=== PATIENT | male | born 1970 | race Hispanic/Latino ===

== ENCOUNTER 2019-01-08 17:48 | Emergency (ER) | payer OTHER ==
[~2019-01-08 17:48] MED LIST: Dextrose 5 %-0.45 % NaCl 1000 ml Bag ONE
[2019-01-08 18:10] LABS: #Basophils 0.1 thou/uL (0.0-0.2); #Lymphocytes 1.8 thou/uL (1.20-3.40); #Monocytes 0.5 thou/uL (0.11-0.59); %Basophils 0.8 % (0.0-1.0); %Eosinophils 0.3 % (0.0-10.0); %Lymphocytes 21.5 % (21.0-51.0); %Monocytes 5.6 % (0.0-10.0); %Neutrophils 71.7 % (42.0-75.0); Hemoglobin 15.6 g/dL (14.0-18.0); Mean Corpuscular HGB CONC 33.9 g/dL (32.0-36.0); Mean Corpuscular Hemoglobin 29.8 pg (27.0-31.0); Mean Corpuscular Volume 88.1 fL (78.0-98.0); Mean Platelet Volume 9.2 fL (7.4-10.4); Platelet Count 155 thou/uL (130-400); RBC Distribution Width 11.3 % (11.5-14.5); Red Blood Cell (RBC) Count 5.24 mill/uL (4.70-6.10); White Blood Cell (WBC) Count 8.3 thou/uL (4.8-10.8)
[2019-01-08 18:13] LABS: INR-International Normal Ratio 1.1; PTT 30.8 SEC (22.9-36.1); Prothrombin Time 14.1 SEC (12.0-14.7)
[2019-01-08] MEDS ORDERED: Multivit, Adult Inj 10 ML VIAL ONE (18:21)
[2019-01-08] MEDS ORDERED: Thiamine HCl 200 MG/2 ML VIAL ONE (18:21)
[2019-01-08 18:22] LABS: ALT (SGPT) 17 U/L (8-55); AST (SGOT) 19 U/L (5-34); Albumin 4.1 g/dL (3.5-5.0); Alkaline Phosphatase 76 U/L (40-150); Anion Gap 14 mmol/L (10-20); BUN (Urea Nitrogen) 8 mg/dL (8.9-20.6); Bilirubin, Total 0.6 mg/dL (0.2-1.2); Calc. Creatinine Clearance 0 mL/min (70-130); Calcium 8.9 mg/dL (7.8-10.44); Carbon Dioxide 27 mmol/L (22-29); Chloride 101 mmol/L (98-107); Estimated GFR-MDRD 89; Globulin 3.3 g/dL (2.4-3.5); Glucose 226 mg/dL (70-105); Protein, Total 7.4 g/dL (6.0-8.3); Sodium 138 mmol/L (136-145)
[2019-01-08 18:41] LABS: CKMB 0.8 ng/mL (0-6.6)
[2019-01-08] MEDS ORDERED: Aspirin 325 MG TAB ONE (19:04)
--- NOTE | 2019-01-08 19:26 | CT ---
CT HEAD WITHOUT CONTRAST: 01/08/19 Multiple axial tomograms obtained without IV enhancement. INDICATIONS: Stroke protocol. Left side facial weakness. FINDINGS: Ventricles have normal size and position. There is a focal lucency in the left basal ganglia extending superiorly in the left periventricular w phyllis matter consistent with an old lacunar infarct. There is an abnormal area of lucency in the right parietal lobe cortex posteriorly. This measures 2.0 cm in AP dimension on axial views. This is an at ypical appearance for infarct. Other lesions should be excluded. Recommend further evaluation with M RI of brain with and without contrast. No evidence of hemorrhage. IMPRESSION: There is abnormal area of low attenuation in the posterior right parietal lobe which is nonspecific. This is not typical of infarct and other lesion should be excluded. Recommend further evaluation with MRI brain. Findings relayed to Dr. Galvez at 6:11 p.m. POS: [facility]
--- NOTE | 2019-01-08 19:42 | CT ---
CTA HEAD: 01/08/19 Multiple axial tomograms obtained following angio protocol. Multiplanar reconstruction and 3D postpro cessing. INDICATIONS: Stroke protocol. FINDINGS: The intracranial internal carotid arteries are patent and appear symmetric. Atherosclerotic calcifica tion is prominent in the cavernous portions of both ICAs and there is luminal narrowing in both ICAs within the cavernous portion. This luminal narrowing does appear hemodynamically significant producin g 50% diameter stenosis bilaterally. The M1 segments appear small but are both symmetric and patent. No focal stenosis or proximal occlusion. The M2 and M3 branches on the right are decreased. The oper cula and parasylvian branches on the right are decreased compared to the left indicating probably M2 branch occlusion on the right. Basilar artery is patent. Posterior cerebrals appear patent and symmetric. IMPRESSION: 1. Prominent atherosclerotic calcification in the cavernous portions of both ICAs which appears to be producing hemodynamically significant stenosis bilaterally. 2. Decreased M2 and M3 branches on the right consistent with a right M2 occlusion. Findings relayed to Dr. Galvez. CT NECK: Axial tomograms obtained with multiplanar reconstructions and 3D postprocessing. FINDINGS: Motion artifact degrades evaluation of the mid neck. The bulb regions are especially degraded. Origin of arch vessels unremarkable. Common carotids appear patent and symmetric. Atherosclerotic changes are seen in both bulbs and both proximal ICAs with peripheral calcification a nd prominent soft plaque producing significant luminal stenosis on the right which appears to be high grade. Motion artifact degrades evaluation although the degree of stenosis on the right appears grea ter than 70%. There is irregular lumen on the left. No definite high grade stenosis on the left. The more distal ICAs appear patent and symmetric. IMPRESSION: Prominent atherosclerotic changes at both bulbs and both proximal ICAs. Evidence of high grade stenos is in the proximal right ICA. Irregular lumen in the proximal left ICA with mild to moderate stenosis . Recommend further evaluation with catheter angiography for better characterization. POS: [facility]
== END 2019-01-08 19:50 | disposition short-term general hospital (02) ==
LOC: MADERS 17:48
DX: R53.1 Weakness (principal)
CPT/HCPCS: 36415; 36416; 70450; 70496; 70498; 80053; 82550; 82553; 84484; 85025; 85610; 85730; 93005; 94760; J3411; J7042